=== PATIENT | female | born 2005 ===

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

== ENCOUNTER → 2025-02-03 14:41 | Outpatient (CLI) | payer OTHER, SELFPAY ==
[2025-02-03 15:02] LABS: Add Manual Diff / Slide Review NO; Hematocrit 41.4 % (36-46); Hemoglobin 14.1 g/dL (12.0-16.0); Lymphocytes Absolute Auto 2600 /uL (1100-4500); Mean Corpuscular HGB Conc 34.1 % (30-36); Mean Corpuscular Hemoglobin 30.5 PG (26-34); Mean Corpuscular Volume 89.6 fL (80-100); Platelet Count 262 X10^3/uL (150-400)
[2025-02-03 15:22] LABS: HEMOLYSIS < 15 (0-50); Iron 112 ug/dL (37-170)
[2025-02-03 15:32] LABS: Percent Iron Saturation 34 % (15-50); Total Iron Binding Capacity 331 ug/dL (265-497); Transferrin 294 mg/dL (206-381)
[2025-02-03 15:40] LABS: Vitamin D 25 Hydroxy (D3) 27.1 ng/mL (30.0-100.0)
[2025-02-03 15:53] LABS: TSH w/ Reflex to FT4 1.28 uIU/mL (0.47-4.68)
[2025-02-03 16:04] LABS: Alanine Aminotransferase 23 IU/L (<35); Albumin 4.2 g/dL (3.5-5.0); Albumin Globulin Ratio 1.5 (1.0-2.8); Alkaline Phosphatase 83 U/L (38-126); Blood Urea Nitrogen 6 mg/dL (7-17); Calcium 9.3 mg/dL (8.4-10.2); Carbon Dioxide 25 mmol/L (22-32); Chloride 105 mmol/L (98-107); Estimated Glomerular Filt Rate > 60 mL/min (>60); Globulin 2.8 g/dL (1.7-4.1); Glucose 83 mg/dL (70-99); HEMOLYSIS < 15 (0-50); Potassium 4.0 mmol/L (3.4-5.1); Sodium 136 mmol/L (137-145); Total Protein 7.0 g/dL (6.3-8.2)
[2025-02-03 16:12] LABS: Vitamin B12 197 pg/mL (239-931)
== END ==
PROVIDERS: PCP Registered Nurse Diabetes Educator; Referring Provider Physician Assistant; Visit Provider Physician Assistant
DX: E55.9 Vitamin D deficiency, unspecified (principal); E63.9 Nutritional deficiency, unspecified; R53.83 Other fatigue; F50.89 Other specified eating disorder; N80.9 Endometriosis, unspecified
CPT/HCPCS: 36415; 80053; 82306; 82607; 83540; 83550; 84443; 85025

== ENCOUNTER 2025-05-28 18:42 | Emergency (ER) | payer OTHER, SELFPAY ==
[2025-05-28 18:49] VITALS: BP 138/86; PULSE 94; RESP 18; TEMP 37; O2SAT 100; BMI 27.8
--- NOTE | 2025-05-28 18:56 | ED_ITS ---
HPI - Ear Problem
--- NOTE | 2025-05-28 18:56 | ED.EAR ---
HPI - Ear Problem General Chief complaint: Ear Stated complaint: sharp R ear pn 1 hour, congestion 2wks Time Seen by Provider: 05/28/25 18:54 Source: patient Mode of arrival: Ambulatory History of Present Illness HPI Narrative: Patient is a 20-year-old healthy female presenting today with sudden onset right ear pain. No fever or chills. She has been having some upper respiratory like symptoms for a couple of weeks no significant fever. She has a mild sore throat when she wakes up my no difficulty swallowing. She can not take ibuprofen because it causes a scratchy throat but she can take Tylenol. However while driving with her mom had sudden onset right ear pain Related Data Previous Rx's ?Medication ?Instructions ?Recorded norelgestromin 150 mcg-e.estradiol 1 patch transdermal Q7D #9 ea 02/03/25 35 mcg/24 hr weekly transderm patch ketoconazole 2 % shampoo 1 applic topical 2XW seborrheic 03/25/25 dermatitis #120 mL amoxicillin 875 mg tablet 875 mg PO BID #20 tabs 05/28/25 Allergies Allergy/AdvReac Type Severity Reaction Status Date / Time ibuprofen AdvReac Intermediate throat Verified 05/28/25 18:49 itching orange flavor AdvReac Intermediate itchy Verified 05/28/25 18:49 throat Patient History Medical History (Updated 05/28/25 @ 18:59 by Flavia Samuel DO) Seborrheic dermatitis of scalp Headache Fibroma (~2018) Chronic back pain Ankle pain Wears glasses Endometriosis (~2021) Painful menstrual periods Nonossifying fibroma Anxiety Asthma Seasonal allergies Family History Father Anxiety Asthma Mother Anxiety Hyperlipidemia OCD (obsessive compulsive disorder) Brother Eczema Brother Febrile seizure Grandfather Multiple sclerosis Grandmother Breast cancer Hyperlipidemia Grandfather Diabetes mellitus Hyperlipidemia Hypertension Grandmother Diabetes mellitus Hyperlipidemia Hypertension Sarcoidosis Social History Smoking Status: Never smoker Smoking Status: Never smoker Exam Initial Vital Signs Initial Vital Signs: Vital Signs Temperature 98.6 F 05/28/25 18:49 Pulse Rate 94 H 05/28/25 18:49 Respiratory Rate 18 05/28/25 18:49 Blood Pressure 138/86 05/28/25 18:49 Pulse Oximetry 100 05/28/25 18:49 Oxygen Delivery Method Room Air 05/28/25 18:49 GENERAL: Well-appearing, well-nourished and in no acute distress. HEENT: Head atraumatic,EOMI, pupils reactive, face symmetric, moist mucous membranes EARS: Right ear significant erythema with fluid behind membrane, left ear within normal limits PHARYNX: No erythema, no tonsillar exudate, no cervical lymphadenopathy CARDIOVASCULAR: Regular rate and rhythm without murmurs, rubs or gallops. RESPIRATORY: Breath sounds equal bilaterally, no wheezes rales or rhonchi. EXTREMITIES: Normal range of motion, no clubbing or edema. Neurovascularly intact NEUROLOGICAL: Alert and oriented x4.Normal gait and speech. SKIN: Warm, dry, no laceration, no petechiae, no rashes or lesions. Course Orders Ordered: Discontinued Medications Amoxicillin/Clavulanate Potassium (Amoxicillin/Clav 875/125 Mg) 1 tab PO NOW ONE Stop: 05/28/25 18:56 Last Admin: 05/28/25 19:02 Dose: 1 tab Documented By: BARRERA Vital Signs Vital signs: Vital Signs - 8 hr 05/28/25 18:49 Temperature 98.6 F Pulse Rate 94 H Respiratory Rate 18 Blood Pressure 138/86 Pulse Oximetry 100 Oxygen Delivery Method Room Air Medical Decision Making MDM Narrative Medical decision making narrative: Patient is a 20-year-old female presenting today with sudden onset right ear pain. She is found to have otitis media. She otherwise appears well nontoxic no evidence of pharyngitis. No concern for mastoiditis. Appears well nontoxic. Given 1st dose of antibiotic here in the ED. Discharge Plan Departure Patient Disposition: Home Clinical Impression: Acute otitis media Activity Restrictions/Additional Instructions: *You have been diagnosed with right ear infection *What to do: Your ear should start to feel better in the next 2-3 days *Continue to take medications as directed Amoxicillin 875 twice a day for 10 days Tylenol 1000 mg every 6 hours if needed for [id number] pain *Follow up with your primary care provider in 2-3 days or call [phone] *Return to ER if you should have increasing or any new, worsening or concerning symptoms Prescriptions: New amoxicillin 875 mg tablet 875 mg PO BID Qty: 20 0RF No Action norelgestromin-ethin.estradiol 150-35 mcg/24 hr patch weekly 1 patch transdermal Q7D Qty: 9 3RF Rx Instructions: apply once weekly for 3 weeks of a 4-week cycle ketoconazole 2 % shampoo 1 applic topical 2XW Qty: 120 3RF Rx Instructions: Apply 5 to 10 mL to wet scalp, lather, leave on 3 to 5 minutes, and rinse; apply twice weekly for 2 to 4 weeks Referrals: Adarsh Gonzalez ARNP [Primary Care Provider, Medical] Stand Alone Forms: Patient Portal/API
[2025-05-28] MEDS: AMOXICILLIN/CLAV 875/125 MG 1 TAB PO (19:02)
== END 2025-05-28 19:16 | disposition home or self-care (01) ==
PROVIDERS: Emergency Provider Emergency Medicine; PCP Registered Nurse Diabetes Educator
DX: H66.91 Otitis media, unspecified, right ear (principal)
CPT/HCPCS: 99283